=== PATIENT | female | born 1965 | race Two or more races ===

== ENCOUNTER → 2017-01-04 | Outpatient (CLI) | payer OTHER ==
[~2017-01-04] MED LIST: LIDOCAINE 1% SDV INJ 30 ML VIAL As Ordered ONE; MIDAZOLAM INJ 2 MG/2 ML VIAL (J2250) As Ordered ONE; fentaNYL 100 MCG/2 ML INJECTION (J3010) As Ordered ONE
[2017-01-04 17:22] LABS: GLUCOSE CSF 49 MG/DL (40-75)
[2017-01-04 17:46] LABS: RBC CSF AUTO 49 /mm3 (0-0); WBC CSF AUTO 7 /mm3 (0-10)
[2017-01-04 18:00] LABS: APPEARANCE, CSF CLEAR (CLEAR); COLOR, CSF COLORLESS (COLORLESS); CSF DIFF IF INDICATED? NO (NO); CSF TUBE# CELL CNT TUBE 3
[2017-01-04 22:03] LABS: CSF DILUENT LOT # 6221
[2017-01-05 09:58] LABS: CSF H. INFLUENZA NEGATIVE (NEGATIVE)
[2017-01-05 09:59] LABS: CSF GROUP B STREP NEGATIVE (NEGATIVE); CSF N MENINGITIDIS ACYW135 NEGATIVE (NEGATIVE); CSF STREP PNUEMO NEGATIVE (NEGATIVE)
[2017-01-12 10:20] LABS: OLIGOCLONAL BANDS, CSF Bands seen in gamma (No Bands)
--- NOTE | 2017-01-16 00:02 | ECWPNPC ---
PATIENT NAME: MELISSA POP : 1965 GENDER: FEMALE VISIT DATE: 01/04/2017 DISCHARGE DATE: 01/04/17 0000 VISIT LOCKED DATE TIME: PHYSICIAN: JEFRY CRAMER RESOURCE: JEFRY CRAMER REASON FOR APPOINTMENT 1. DEMYLENATING DISEASE CURRENT MEDICATIONS NONE ASSESSMENTS DEMYLENATING DISEASE. TREATMENT OTHERS NOTES: SPINAL TAP WITH IV SEDATION - PLEASE SEE MEDITECH. DISPOSITION & COMMUNICATION FOLLOW UP F/UP WITH NEUROLOGIST/ CALL NEEDED ELECTRONICALLY SIGNED BY JEFRY CRAMER MD ON 01/15/2017 AT 08:25 AM EDT DISCLAIMER : THIS IS A VISIT SUMMARY EXTRACTED FROM THE [employer] CHART. IT IS NOT A COPY OF THE Project [employer] PROGRESS NOTE. MTDD
== END | disposition home or self-care (01) ==
LOC: M PAIN 13:00
PROVIDERS: ATTEND Anesthesiology
DX: G89.29 Other chronic pain (principal); G37.9 Demyelinating disease of central nervous system, unspecified
CPT/HCPCS: 36415; 62270; 82784; 82945; 83916; 84157; 87015; 87070; 87102; 87205; 87252; 87802; 87899; 88108; 88313; 89050; 99152; J2250; J3010

== ENCOUNTER → 2017-08-24 | Outpatient (REF) | payer OTHER ==
[2017-08-24 14:57] LABS: INFLUENZA A AMPLIFICATION NEGATIVE (NEGATIVE); INFLUENZA B AMPLIFICATION POSITIVE (NEGATIVE)
== END ==
LOC: M LAB REF 12:58
DX: J02.9 Acute pharyngitis, unspecified (principal)

== ENCOUNTER → 2023-06-30 | Day surgery (SDC) | payer OTHER ==
[~2023-06-30] VITALS: Ht 160 cm; Wt 76.7 kg
[~2023-06-30] MED LIST changes: +LEVO75TA4 PO; -LIDOCAINE 1% SDV INJ 30 ML VIAL As Ordered ONE; +LIDOCAINE 2% 100MG/5ML SDV (FOR ANES.) As Ordered ONE; -MIDAZOLAM INJ 2 MG/2 ML VIAL (J2250) As Ordered ONE; +NAPR-849 PO; +NS 1,000 ML IV ONE; +VITA100065 PO; +VITA100C8 PO; -fentaNYL 100 MCG/2 ML INJECTION (J3010) As Ordered ONE; +propofoL 200 MG/20 ML VIAL As Ordered ONE
[2023-06-30 08:50] VITALS: TEMP 97.2
[2023-06-30 09:04] VITALS: BP 133/71; O2SAT 98
== END | disposition home or self-care (01) ==
LOC: M OPP 07:08
PROVIDERS: ATTEND Surgery
DX: Z12.11 Encounter for screening for malignant neoplasm of colon (principal); K64.0 First degree hemorrhoids; Z79.1 Long term (current) use of non-steroidal anti-inflammatories (NSAID); Z79.890 Hormone replacement therapy